=== PATIENT | male | born 1940 | race Two or more races ===

== ENCOUNTER 2017-08-28 15:45 | Outpatient (CLI) | payer OTHER | END 2017-08-28 15:50 | disposition home or self-care (01) | LOC: LAB 15:45 | DX: R97.20 Elevated prostate specific antigen [PSA] (principal) ==

== ENCOUNTER 2017-09-24 07:07 | Outpatient (CLI) | payer OTHER | END 2017-09-24 07:16 | disposition home or self-care (01) | LOC: SONOGRAMA 07:07 | DX: R97.20 Elevated prostate specific antigen [PSA] (principal) ==

== ENCOUNTER 2018-07-07 11:40 | Outpatient (CLI) | payer OTHER | END 2018-07-07 11:48 | disposition home or self-care (01) | LOC: LAB 11:40 | DX: R97.20 Elevated prostate specific antigen [PSA] (principal) ==

== ENCOUNTER 2018-08-19 07:18 | Outpatient (CLI) | payer OTHER | END 2018-08-19 07:21 | disposition home or self-care (01) | LOC: SONOGRAMA 07:18 | DX: C61 Malignant neoplasm of prostate (principal) ==

== ENCOUNTER 2022-10-16 07:20 | Outpatient (CLI) | payer OTHER | END 2022-10-16 07:21 | disposition home or self-care (01) | LOC: NUCLEAR 07:20 | PROVIDERS: ATTEND Specialist | DX: E05.80 Other thyrotoxicosis without thyrotoxic crisis or storm (principal) | CPT/HCPCS: 78012; A9512 ==

== ENCOUNTER 2023-06-04 11:07 | Outpatient (CLI) | payer OTHER ==
[2023-06-04 11:37] LABS: MEAN CORPUSCULAR HGB CONC 30.2 g/dl (32.0-36.0); PLATELET COUNT 237 K/uL (150-450); RED BLOOD COUNT 4.93 M/uL (4.00-6.00); RED CELL DISTRIBUTION WIDTH 22.4 % (11.5-14.5)
[2023-06-04 11:39] LABS: HEMOGLOBIN 8.5 g/dL (13-16.00); MEAN CELL VOLUME 56.9 fL (80.0-100.00); MEAN CORPUSCULAR HEMOGLOBIN 17.2 pg (27.00-32.0)
== END 2023-06-04 11:11 | disposition home or self-care (01) ==
LOC: LAB 11:07
PROVIDERS: ATTEND Specialist
DX: D64.9 Anemia, unspecified (principal)

== ENCOUNTER 2024-04-21 07:00 | Outpatient (CLI) | payer OTHER ==
[~2024-04-21 07:00] MED LIST: COZAAR100 MG PO; LASIX40 MG PO; LIPITOR40 MG PO; NORVASC10 MG PO; PEPCID AC20 MG PO; PROSCAR5 MG PO; TOPROL XL50 MG PO; TRADJENTA5 MG PO
== END 2024-04-21 07:01 | disposition home or self-care (01) ==
LOC: NUCLEAR 07:00
PROVIDERS: ATTEND Specialist
DX: D35.1 Benign neoplasm of parathyroid gland (principal); N25.81 Secondary hyperparathyroidism of renal origin
CPT/HCPCS: 78070; A9500

== ENCOUNTER 2024-10-06 12:00 | Day surgery (SDC) | payer OTHER ==
[2024-10-06] MEDS ORDERED: MIDAZOLAM HCL 2 MG/2 ML VIAL IV ONE (13:30)
== END 2024-10-06 15:35 | disposition home or self-care (01) ==
LOC: AMB-ENDOS 12:00
PROVIDERS: ATTEND Internal Medicine Gastroenterology
DX: K29.40 Chronic atrophic gastritis without bleeding (principal); K31.A19 Gastric intestinal metaplasia without dysplasia, unspecified site; K62.1 Rectal polyp